=== PATIENT | male | born 1980 | race Caucasian/White ===

== ENCOUNTER 2020-11-17 07:29 | Inpatient (IN) | payer OTHER ==
[~2020-11-17] VITALS: Ht 190.5 cm; Wt 104.3 kg
[2020-11-17 07:33] VITALS: BP 174/104
[2020-11-17 08:01] LABS: ABSOLUTE EOSINOPHILS 0.2 thou/uL (0.0-0.7); ABSOLUTE LYMPHOCYTES 2.1 thou/uL (0.8-5.3); ABSOLUTE MONOCYTES 0.7 thou/uL (0.0-1.2); ABSOLUTE NEUTROPHILS 4.4 thou/uL (1.6-8.1); BASOPHILS 0.5 %; EOSINOPHILS 2.2 %; HEMOGLOBIN 14.8 gm/dL (14.0-18.0); LYMPHOCYTES 28.5 %; MCH 30.4 pg (26.0-34.0); MCHC 34.4 g/dL (28.0-37.0); MCV 88.3 fL (80.0-100.0); MONOCYTES 9.4 %; MPV 7.4 fl. (7.2-11.1); NUCLEATED RBCS 0 /100WBC; PLATELET COUNT* 157 thou/uL (150-400); POLYS 59.4 %; RBC 4.87 mil/uL (4.50-6.00); RDW-CV 13.3 % (10.5-14.5); WBC 7.4 thou/uL (4.0-11.0)
[2020-11-17 08:11] LABS: CALCIUM 8.6 mg/dL (8.5-10.1); CREATININE 1.1 mg/dL (0.6-1.3); POTASSIUM 4.3 mmol/L (3.5-5.1)
[2020-11-17 08:21] LABS: ALBUMIN 3.8 g/dL (3.4-5.0); TOTAL BILIRUBIN 0.3 mg/dL (<0.1-1.0)
[2020-11-17 09:26] LABS: CHOLESTEROL 240 mg/dL (<200); HDL CHOLESTEROL 47 mg/dL (>40); LDL CHOLESTEROL 145 mg/dL (<100); TC:HDL 5.1 Ratio (Not establshd); TRIGLYCERIDE 244 mg/dL (<150); VLDL 49 mg/dL (<40)
[2020-11-17 09:29] LABS: SERUM ASSESSMENT Clear
[2020-11-17 11:17] VITALS: BP 153/98
--- NOTE | 2020-11-17 11:39 | EKG ---
[place] [address] ELECTROCARDIOGRAM REPORT Name: KATHLEEN LOPEZ Room: [place] [address] ADM IN .R.#: [id number] Admission: 11/17/20 Attend Phys: Fran Kay Discharge: Date of : 76 Date of Service: 11/17/20 0733 Report #: [id number] THIS REPORT FOR: //name// [facility] ED Test Date: 2020-11-17 Test Time: 07:33:01 Pat Name: KATHLEEN LOPEZ Department: Room: 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 : 1980 Requested By: Reji Summers Order Number: [id number] MD: Fabian Carl Measurements Intervals [place] Rate: 72 P: 45 OR: 138 QRS: 12 QRSD: 103 T: 24 QT: 405 QTc: 444 Interpretive Statements Sinus rhythm RSR' in V1 or V2, right VCD or RVH Inferior infarct, old Minimal ST elevation, anterior leads suggests early repolarization No previous ECG available for comparison Electronically Signed On 11-17-2020 11:39:16 CDT by Fabian Carl [email or web address] <ELECTRONICALLY SIGNED> By: Fabian Carl MD, FACC 11/17/20 1139 Fabian Carl MD, FAC /EPI
[2020-11-17 12:44] VITALS: BP 135/91
[2020-11-17 12:58] VITALS: BP 152/99
[2020-11-17] MEDS ORDERED: LIPITOR40 MG PO (14:49)
--- NOTE | 2020-11-17 16:08 | 2DMMODE ---
[place] [address] 2 D/M-MODE ECHOCARDIOGRAM Name: KATHLEEN LOPEZ Room: [address] IN [facility]#: [id number] Admission: 11/17/20 Attend Phys: Fran Kay Discharge: 11/17/20 Date of : 76 Date of Service: 11/17/20 1608 Report #: [id number] THIS REPORT FOR: cc: FAM - No family physician/PCP FAM - No family physician/PCP Rafal Reveles MD [facility] ~ APPROVED REPORT Study performed: 11/17/2020 14:33:10 EXAM: Comprehensive 2D, Doppler, and color-flow Echocardiogram Patient Location: In-Patient Room #: CL Status: routine BSA: 2.33 HR: 68 bpm BP: 132/93 mmHg Rhythm: NSR Other Information Study Quality: Good Indications Chest Pain 2D Dimensions IVSd: 10.67 (7-11mm) LVOT Diam: 21.25 (18-24mm) LVDd: 50.45 mm PWd: 10.62 (7-11mm) Ascending Ao: 30.59 (22-36mm) LVDs: 28.39 (25-40mm) Aortic Root: 37.54 mm Volumes Left Atrial Volume (Systole) LA ESV Index: 23.30 mL/m2 Aortic Valve AoV Peak Durga.: 1.18 m/s AO Peak Gr.: 5.61 mmHg LVOT Max P.27 mmHg AO Mean Gr.: 3.25 mmHg LVOT Mean P.02 mmHg LVOT Max V: 1.03 m/s AO V2 VTI: 19.90 cm LVOT Mean V: 0.65 m/s HERBERT (VTI): 3.40 cm2 LVOT V1 VTI: 19.08 [place] [address] 2 D/M-MODE ECHOCARDIOGRAM Name: KATHLEEN LOPEZ Room: [address]#: [id number] Admission: 11/17/20 Attend Phys: Fran Kay Discharge: 11/17/20 Date of : 76 Date of Service: 11/17/20 1608 Report #: [id number] Mitral Valve E/A Ratio: 1.63 MV Decel. Time: 190.62 ms MV E Max Durga.: 0.64 m/s MV PHT: 55.28 ms MVA (PHT): 3.98 cm2 TDI E/Lateral E': 4.92 E/Medial E': 5.82 Medial E' Durga.: 0.11 m/s Lateral E' Durga.: 0.13 m/s Pulmonary Valve PV Peak Durga.: 1.42 m/s PV Peak Gr.: 8.08 mmHg Tricuspid Valve RAP Estimate: 5.00 mmHg TR Peak Gr.: 17.27 mmHg RVSP: 22.00 mmHg PA Pressure: 22.00 mmHg Left Ventricle The left ventricle is normal size. There is normal LV segmental wall motion. There is normal left ventricular wall thickness. Left ventricular systolic function is normal. LVEF is 60-65%. The left ventricular diastolic function is normal. Right Ventricle The right ventricle is normal size. The right ventricular systolic function is normal. Atria The left atrium size is normal. The right atrium size is normal. Aortic Valve The aortic valve is normal in structure. No aortic regurgitation is present. There is no aortic valvular stenosis. Mitral Valve The mitral valve is normal in structure. Trace mitral regurgitation. No evidence of mitral valve stenosis. Tricuspid Valve The tricuspid valve is normal in structure. Trace tricuspid regurgitation[place] [address] 2 D/M-MODE ECHOCARDIOGRAM Name: KATHLEEN LOPEZ Room: [address]#: [id number] Admission: 11/17/20 Attend Phys: Fran Kay Discharge: 11/17/20 Date of : 76 Date of Service: 11/17/20 1608 Report #: [id number] Pulmonic Valve The pulmonary valve is normal in structure. Trace pulmonic regurgitation. Great Vessels The aortic root is normal in size. IVC is normal in size and collapses >50% with inspiration. Pericardium There is no pericardial effusion. <Conclusion> The left ventricle is normal size. There is normal left ventricular wall thickness. Left ventricular systolic function is normal. LVEF is 60-65%. The left ventricular diastolic function is normal. Trace tricuspid regurgitation. No pulmonary hypertension. <ELECTRONICALLY SIGNED> By: Rafal Reveles MD, FACC 11/17/20 1608 1608 1608 Rafal Reveles MD, FACC /INF
--- NOTE | 2020-11-19 09:41 | CON ---
[address] [address] CONSULTATION Name: KATHLEEN LOPEZ Room: [address] IN .R.#: [id number] Admission: 11/17/20 Attend Phys: Susan Jeffries Discharge: 11/17/20 Date of : 76 Report #: [id number] THIS REPORT FOR: cc: FAM - No family physician/PCP FAM - No family physician/PCP Rafal Reveles MD [facility] ~ DATE OF CONSULTATION: 11/17/2020 CARDIOLOGY CONSULTATION INDICATION: Chest pain with elevated troponin. HISTORY OF PRESENT ILLNESS: The patient is a 40-year-old white male with no prior cardiac history. The patient reports some intermittent palpitations over the last few days that are infrequent. He denies lightheadedness, dizziness, or syncope. Last night while trying to sleep, he had left-sided chest discomfort described as a dull ache that was persistent for a few hours. He reports diaphoresis, but states that he sweats every night. He did not have any nausea or vomiting. There was no specific radiation of the discomfort. There was no associated shortness of breath. On arrival to the Emergency Room, the pain has resolved. EKG shows sinus rhythm with some nonspecific T-wave inversion in the inferior leads, but no significant ST segment abnormalities. Initial troponin is 0.29. PAST MEDICAL AND SURGICAL HISTORY: 1. Appendectomy at age 15. 2. Tobacco use. MEDICATIONS: None. ALLERGIES: None. SOCIAL HISTORY: The patient smokes cigarettes daily. He drinks alcohol in moderation. He is . His is in attendance with him. FAMILY HISTORY: Positive for coronary artery disease in the patient's father. PHYSICAL EXAMINATION: VITAL SIGNS: Blood pressure is 174/104, pulse is 69. GENERAL: This is a pleasant, healthy-appearing gentleman who is in no distress. HEENT: Head normocephalic, atraumatic. Extraocular muscles intact. Mucous membranes are moist. NECK: Examination of the neck shows no jugular venous distention. There are no carotid bruits. CHEST: Reveals clear lung lauren [place] [address] CONSULTATION Name: KATHLEEN LOPEZ Room: [address]#: [id number] Admission: 11/17/20 Attend Phys: Susan Jeffries Discharge: 11/17/20 Date of : 76 Report #: [id number] CARDIAC: Reveals regular rhythm with normal S1 and S2. I do not appreciate gallop or murmur. ABDOMEN: Reveals normal bowel sounds. Abdomen is soft, nontender. EXTREMITIES: Show no edema. Peripheral pulses 2+ and easily palpable. SKIN: Dry. LABORATORY DATA: Labs are reviewed. Electrolytes are within normal limits. BUN 19, creatinine 1.1, serum glucose 119. LFTs are within normal limits. Troponin initially 0.29. Subsequent troponin pending. CBC is within normal limits. IMAGING: Portable chest x-ray shows no acute coronary abnormalities. IMPRESSION AND RECOMMENDATIONS: 1. Chest pain with elevated troponin consistent with non-ST elevation myocardial infarction. The patient is to receive aspirin in the Emergency Room. 2. Hypertension. Start low-dose beta barbara. Blood pressure is moderately elevated. We will start beta barbara at this time. <ELECTRONICALLY SIGNED> By: Rafal Reveles MD, FACC 11/19/20 0941 [id number] Reveles MD, FACC /nt
== END 2020-11-17 15:07 | disposition home or self-care (01) | DRG 282 ==
LOC: M.ERS 07:29 → M.TBA-CV 09:07 → M.TBA-ER 09:07 → M.TBA-CV 11:20
PROVIDERS: Emergency Medicine Emergency Medical Services; Internal Medicine Cardiovascular Disease; ADMIT Internal Medicine; ATTEND Internal Medicine
PROC: B2151ZZ Fluoroscopy of Left Heart using Low Osmolar Contrast (ICD-10-PCS; principal; 2020-11-17)
PROC: 4A023N7 Measurement of Cardiac Sampling and Pressure, Left Heart, Percutaneous Approach (ICD-10-PCS; principal; 2020-11-17)
PROC: B2111ZZ Fluoroscopy of Multiple Coronary Arteries using Low Osmolar Contrast (ICD-10-PCS; principal; 2020-11-17)
DX: I21.4 Non-ST elevation (NSTEMI) myocardial infarction (principal); Z20.822 Contact with and (suspected) exposure to COVID-19; F17.210 Nicotine dependence, cigarettes, uncomplicated; I10 Essential (primary) hypertension; Z90.49 Acquired absence of other specified parts of digestive tract; Z82.49 Family history of ischemic heart disease and other diseases of the circulatory system